=== PATIENT | female | born 1975 | race African-American/Black ===

== ENCOUNTER 2016-07-17 07:41 | Outpatient (CLI) | payer OTHER ==
--- NOTE | 2016-07-17 08:31 | Ultrasound Report ---
Left mammogram: This serves as a short-term followup to prior ultrasound of February 03, 2016. 2 sharply demarcated, elongated hypodensities are identified in the 1:00 and 1:30 positions. These remain unchanged no suspicious characteristics. Impression: Probably benign hypodensities. Recommendation: Repeat left breast ultrasound in one year to confirm stability. BI-RADS CATEGORY: 3 = Probably benign ACR BI-RADS MAMMOGRAPHIC CODES: 0 = Needs additional imaging evaluation; 1 = Negative; 2 = Benign; 3 = Probably benign; 4 = Suspicious; 5 = Malignant; 6 = Known biopsy-proven malignancy COMMENT: 1. Dense breast tissue, i.e., adenosis, fibrocystic changes, etc., may obscure an underlying neoplasm. 2. Approximately 10% of cancers are not detected with mammography. 3. A negative mammography report should not delay biopsy if a clinically suspicious mass is present.
== END 2016-07-17 07:42 | disposition home or self-care (01) ==
LOC: US 07:41
PROVIDERS: ATTEND Obstetrics & Gynecology
DX: R92.8 Other abnormal and inconclusive findings on diagnostic imaging of breast (principal)

== ENCOUNTER 2017-07-20 12:57 | Outpatient (CLI) | payer BC ==
--- NOTE | 2017-07-20 14:32 | Ultrasound Report ---
Bilateral mammogram and left breast ultrasound: The patient has a dense rest pattern which is diffusely and symmetrically distributed. In the far posterior left breast seen only in the MLO projection there is a incompletely visualized but sharply defined where visualized density. It appears slightly more elongated than the more rounded density that was initially visualized in November of 2015. The breast pattern is not otherwise remarkable were changed. Ultrasound of the left breast again demonstrates a circumscribed hypoechoic nodule in the deep breast just anterior to the pectoralis muscle at 1:00. It measures 1 cm in maximum dimension which is essentially the same as noted on the prior study in June of 2016. A second nodular area at 2:00 appears essentially unchanged with similar characteristics. A rounded almost anechoic nodule measuring 3.7 mm in the 1:30 location was not previously identified but has benign characteristics. CAD used. Impression: The mammographic and ultrasound findings appear generally stable with no suspicious findings. Recommendation: Annual mammogram followup with left breast ultrasound. BI-RADS CATEGORY: 2 = Benign ACR BI-RADS MAMMOGRAPHIC CODES: 0 = Needs additional imaging evaluation; 1 = Negative; 2 = Benign; 3 = Probably benign; 4 = Suspicious; 5 = Malignant; 6 = Known biopsy-proven malignancy COMMENT: 1. Dense breast tissue, i.e., adenosis, fibrocystic changes, etc., may obscure an underlying neoplasm. 2. Approximately 10% of cancers are not detected with mammography. 3. A negative mammography report should not delay biopsy if a clinically suspicious mass is present.
== END 2017-07-20 12:58 | disposition home or self-care (01) ==
LOC: MAMMO 12:57
PROVIDERS: ATTEND Obstetrics & Gynecology
DX: N63.20 Unspecified lump in the left breast, unspecified quadrant (principal); R92.8 Other abnormal and inconclusive findings on diagnostic imaging of breast
CPT/HCPCS: 77066

== ENCOUNTER 2021-07-19 06:10 | Emergency (ER) | payer BC, OTHER ==
[2021-07-19] MEDS ORDERED: KETOROLAC 10 MG TAB PO ONE (09:47)
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
[2021-07-19 11:28] VITALS: BP 116/66
== END 2021-07-19 11:28 | disposition home or self-care (01) ==
LOC: ED 06:10
DX: M79.652 Pain in left thigh (principal); R10.9 Unspecified abdominal pain; V89.2XXA Person injured in unspecified motor-vehicle accident, traffic, initial encounter; Y93.89 Activity, other specified; Y92.89 Other specified places as the place of occurrence of the external cause; Y99.8 Other external cause status
CPT/HCPCS: 74176; 99284

== ENCOUNTER 2021-10-24 12:30 | Outpatient (CLI) | payer OTHER ==
--- NOTE | 2021-10-26 08:29 | Mammography Report ---
DIGITAL SCREENING MAMMOGRAM WITH CAD, 10/24/2021 CLINICAL INFORMATION / INDICATION: Routine screening mammography. TECHNIQUE: Digital bilateral 2D mammography was obtained in the craniocaudal and mediolateral oblique projections. This examination was interpreted with the benefit of Computer-Aided Detection analysis. COMPARISON: 11/28/2013 through 07/20/2017. FINDINGS: Breast Density: The breasts are extremely dense, which lowers the sensitivity of mammography. No dominant mass, suspicious calcifications, or architectural distortion in either breast. IMPRESSION: No mammographic evidence of malignancy. Follow up recommendation: Routine yearly screening mammogram. BI-RADS Category 1: NEGATIVE A "normal" or negative report should not discourage follow up or biopsy of a clinically significant f inding. A written summary of these findings will be mailed to the patient. The patient will be entered into a mammography reporting system which will generate a reminder letter for the patient's next appointmen t at the appropriate interval. The [employer] recommends yearly mammograms starting at age 40 and continuing as [place] as a woman is in good health. Breast MRI is recommended for women with an approximate 20-25% or greater lifetime risk of breast cancer, including women with a strong family history of breast or ova aubrey cancer or who have been treated for Hodgkin's disease. Signer Name: Raúl Weber MD Signed: 10/26/2021 8:25 AM Workstation Name: [email or web address]
== END 2021-10-24 12:31 | disposition home or self-care (01) ==
LOC: MAMMO 12:30
PROVIDERS: ATTEND Obstetrics & Gynecology
DX: Z12.31 Encounter for screening mammogram for malignant neoplasm of breast (principal)
CPT/HCPCS: 77067